=== PATIENT | male | born 1995 | race African-American/Black ===

== ENCOUNTER 2019-10-25 15:06 | Emergency (ER) | payer SELFPAY ==
[2019-10-25] MEDS ORDERED: Penicillin VK TAB* 250 MG PO ONE (15:18)
[2019-10-25] MEDS ORDERED: Ketorolac *IM* INJ* 60 MG/2 ML VIAL IM ONE (15:18)
--- NOTE | 2019-10-25 15:18 | ED ---
Throat Pain/Nasal Congestion - HPI Summary HPI Summary: 23 year old M presenting to [facility] with a chief complaint of right upper dental pain radiating to his bahai and eye since 1 week ago. The patient rates the pain 10/10 in severity. Symptoms aggravated by nothing. Symptoms alleviated by nothing. Patient reports taking Tylenol and Ibuprofen for pain. He denies any fever, chills, erythema of eyes, sore throat, chest pain, shortness of breath, cough, abdominal pain, nausea/vomiting, dysuria, hematuria, myalgia, edema, rash , or dizziness. Medication list reviewed. Allergy list reviewed. - History of Current Complaint Chief Complaint: EDDentalPain Time Seen by Provider: 10/25/19 15:11 Hx Obtained From: Patient Onset/Duration: Lasting Days Severity: Severe Associated Signs And Symptoms: Positive: Negative - Fever, chills, erythema of eyes, sore throat, chest pain, shortness of breath, cough, abdominal pain, nausea/vomiting, dysuria, hematuria, myalgia, edema, rash, dizziness Cough: None - Allergies/Home Medications Allergies/Adverse Reactions: Allergies Allergy/AdvReac Type Severity Reaction Status Date / Time No Known Allergies Allergy Verified 10/25/19 15:08 Home Medications: Home Medications Lidocaine 2% VISCOUS* [Xylocaine 2% Viscous*] 15 ml SWISH SPIT Q4H PRN #1 btl [Rx] Naproxen TAB* [Naprosyn 250 mg TAB*] 500 mg PO Q8H PRN #30 tab 10/25/19 [Rx] Penicillin VK TAB* [Penicillin VK 250 mg Tab*] 500 mg PO QID #40 tab 10/25/19 [ Rx] PMH/Surg Hx/FS Hx/Imm Hx Endocrine/Hematology History: Denies: Hx Diabetes Cardiovascular History: Denies: Hx Hypertension - Surgical History Surgical History: Yes Surgery Procedure, Year, and Place: Cholostomy removal Infectious Disease History: No Infectious Disease History: Denies: Traveled Outside the [place] in Last 30 Days - Family History Known Family History: Negative: Hypertension, Diabetes - Social History Alcohol Use: None Hx Substance Use: Yes Substance Use Type: Reports: Marijuana Hx Tobacco Use: Yes Smoking Status (MU): Current Every Day Smoker Review of Systems Negative: Fever, Chills Negative: Erythema Positive: Dental Pain. Negative: Sore Throat Negative: Chest Pain Negative: Shortness Of Breath, Cough Negative: Abdominal Pain, Vomiting, Nausea Negative: dysuria, hematuria Negative: Myalgia, Edema Negative: Rash Neurological/Mental Status: Negative - Dizziness All Other Systems Reviewed And Are Negative: Yes Physical Exam - Summary Physical Exam Summary: Constitutional: Well-developed, Well-nourished, Alert. (-) Distressed Skin: Warm, Dry HENT: No visible abscess in his mouth, no trismus, dental decay on all teeth. Eyes: Conjunctiva normal Neck: Musculoskeletal ROM normal neck. (-) JVD, (-) Stridor, (-) Tracheal deviation Cardio: Rhythm regular, rate normal, Heart sounds normal; Intact distal pulses; The pedal pulses are 2+ and symmetric. Radial pulses are 2+ and symmetric. (-) Murmur Pulmonary/Chest wall: Effort normal. (-) Respiratory distress, (-) Wheezes, (-) Rales Abd: Soft, (-) tenderness, (-) Distension, (-) Guarding, (-) Rebound Musculoskeletal: (-) Edema Lymph: (-) Cervical adenopathy Neuro: Alert, Oriented x3 Psych: Mood and affect Normal Triage Information Reviewed: Yes Vital Signs On Initial Exam: Initial Vitals Temp Pulse Resp BP Pulse Ox 97.4 F 64 16 132/72 100 10/25/19 15:07 10/25/19 15:07 10/25/19 15:07 10/25/19 15:07 10/25/19 15:07 Vital Signs Reviewed: Yes Procedures - Sedation Patient Received Moderate/Deep Sedation with Procedure: No Diagnostics - Vital Signs Vital Signs Temp Pulse Resp BP Pulse Ox 10/25/19 15:07 97.4 F 64 16 132/72 100 - Laboratory Lab Statement: Any lab studies that have been ordered have been reviewed, and results considered in the medical decision making process. EENT Course/Dx - Course Course Of Treatment: 23 year old M presenting to [facility] with a chief complaint of right upper dental pain radiating to his bahai and eye since 1 week ago. Physical exam findings: no visible abscess in his mouth, no trismus, dental decay on all teeth. In the ED course, the patient was given Penicillin and Toradol. Patient will be discharged with prescriptions for Lidocaine 2%, Naproxen, and Penicillin and follow up from a dentist. The patient is agreeable with this plan. - Diagnoses Provider Diagnoses: Pain, dental - Critical Care Time Critical Care Statement: Critical care time is provided exclusive of any time spent performing procedures. Discharge ED - Sign-Out/Discharge Documenting (check all that apply): Patient Departure - Discharge Plan Condition: Stable Disposition: HOME Prescriptions: Lidocaine 2% VISCOUS* [Xylocaine 2% Viscous*] 15 ml SWISH SPIT Q4H PRN #1 btl PRN Reason: Pain - Mild Naproxen TAB* [Naprosyn 250 mg TAB*] 500 mg PO Q8H PRN #30 tab PRN Reason: Pain - Moderate To Severe Penicillin VK TAB* [Penicillin VK 250 mg Tab*] 500 mg PO QID #40 tab Patient Education Materials: Toothache (ED) Referrals: [facility] [Outside] - 5 Days Additional Instructions: Follow-up with a dentist within 3-5 days. Take your medication as prescribed. Return to the emergency department for changing or worsening symptoms. - Attestation Statements Document Initiated by Scribe: Yes Documenting Scribe: Ewa Villeda Provider For Whom Scribe is Documenting (Include Credential): Jonas Handley MD Scribe Attestation: Ewa Mcmullen, scribed for Jonas Handley MD on 10/25/19 at 1705. Status of Scribe Document: Ready
[2019-10-25 15:27] VITALS: BP 127/73
== END 2019-10-25 15:26 | disposition home or self-care (01) ==
LOC: ED 15:06
DX: K08.89 Other specified disorders of teeth and supporting structures (principal); F17.210 Nicotine dependence, cigarettes, uncomplicated
CPT/HCPCS: 96372; 99282; A9270-GY; J1885